=== PATIENT | female | born 1955 | race Caucasian/White ===

== ENCOUNTER 2018-03-08 15:41 | Emergency (ER) | payer OTHER ==
[2018-03-08 15:42] VITALS: BMI 34.4
[2018-03-08] MEDS ORDERED: Oxycodone/Acetaminophen 5/325 mg Tab PO STA (16:54)
--- NOTE | 2018-03-08 16:56 | C.PDOC ---
History Of Present Illness 62-year-old female presents to the ED for evaluation of right lower back, hip and knee pain which began after she sustained a fall at [employer] (on wet floor, as per triage) prior to arrival. Patient denies head injury, LOC, urinary/bowel incontinence, extremity numbness/weakness. Time Seen by Provider: 03/08/18 16:23 Chief Complaint (Nursing): Lower Extremity Problem/Injury History Per: Patient History/Exam Limitations: no limitations Onset/Duration Of Symptoms: Hrs Current Symptoms Are (Timing): Still Present Additional History Per: Patient - Hip Description Of Injury: Fell - Knee Description Of Injury: Fell Past Medical History Reviewed: Historical Data, Nursing Documentation, Vital Signs Vital Signs: Last Vital Signs Temp 98.8 F 03/08/18 18:46 Pulse 74 03/08/18 18:46 Resp 18 03/08/18 18:46 BP 114/73 03/08/18 18:46 Pulse Ox 98 03/09/18 21:12 - Medical History PMH: Asthma, Atrial Fibrillation, HTN Denies: Chronic Kidney Disease Surgical History: Appendectomy, Cholecystectomy Family History: States: Unknown Family Hx - Social History Hx Alcohol Use: No Hx Substance Use: No - Immunization History Hx Tetanus Toxoid Vaccination: (unk) Hx Influenza Vaccination: Yes Hx Pneumococcal Vaccination: (unk) Review Of Systems Musculoskeletal: Positive for: Back Pain (right, lower ), Other (right hip, right knee ) Neurological: Negative for: Weakness, Numbness Physical Exam - Physical Exam Appears: Non-toxic, No Acute Distress Skin: Normal Color, Warm, Dry, No Ecchymosis, No Other (abrasions ) Head: Atraumatic, Normacephalic Eye(s): bilateral: Normal Inspection Oral Mucosa: Moist Neck: Supple Chest: Symmetrical, No Deformity, No Tenderness Cardiovascular: Rhythm Regular, No Murmur Respiratory: Normal Breath Sounds, No Rales, No Rhonchi, No Wheezing Back: Other (mid-lower back tenderness ) Extremity: Normal ROM, Tenderness (right knee, lateral aspect of right hip ), Capillary Refill (less than 2 seconds), No Swelling Neurological/Psych: Oriented x3, Normal Speech, Normal Cognition Gait: Steady ED Course And Treatment O2 Sat by Pulse Oximetry: 98 (on RA) Pulse Ox Interpretation: Normal - Other Rad KNEE XRAY X-Ray: Viewed By Me, Read By Radiologist Interpretation: Accession No. : [id number]. Patient Name / ID : AMA [id number] / [id number]. Exam Date : 03/08/2018 17:06:33 ( Approved ). Study Comment : Sex / Age : F / 62Y. Creator : Katy Kidd. Dictator : Chadwick Romano MD. Senior Environmental Practice Leader : Supervisor [employer] : Chadwick Romano MD. Approver2 : Report Date : 03/08/2018 17:21:15. My Comment : . Right knee three views. History: Fall. Comparison: None available. Findings: Severe patellofemoral and moderate medial compartment joint space narrowing with subchondral sclerosis and osteophytosis. Small suprapatellar joint effusion. Diffuse osteopenia. Impression: Degenerative changes. If pain persists, consider MRI. HIP XRAY X-Ray: Viewed By Me, Read By Radiologist Interpretation: Accession No. : [id number]. Patient Name / ID : MAA [id number] / [id number]. Exam Date : 03/08/2018 17:06:42 ( Approved ). Study Comment : Sex / Age : F / 62Y. Creator : Katy Kidd. Dictator : Chadwick Romano MD. Senior Environmental Practice Leader : Super[employer] : Chadwick Romano MD. Approver2 : Report Date : 03/08/2018 17:21:15. My Comment : . Pelvis and right hip two views. History: Injury. Comparison: None available. Findings: Calcified phleboliths in the pelvis. Soft tissue calcifications adjacent to the left iliac bone and inferior to the left pubic bone. Moderate degenerative changes of the bilateral hip joints with joint space narrowing. Degenerative changes in the lower lumbar spine. No evidence for acute displaced fracture or dislocation. Impression: Degenerative changes. If pain persists, consider MRI. ls SPINE XRAY X-Ray: Viewed By Me, Read By Radiologist Interpretation: Accession No. : [id number]. Patient Name / ID : AMA [id number] / [id number]. Exam Date : 03/08/2018 17:06:54 ( Approved ). Study Comment : Sex / Age : F / 62Y. Creator : Katy Kidd. Dictator : Chadwick Romano MD. Senior Environmental Practice Leader : Super[employer] : Chadwick Romano MD. Approver2 : Report Date : 03/08/2018 17:21:15. My Comment : . Lumbar spine three views. History: Fall. Comparison: None available. Findings: Minimal retrolisthesis of L3 on L4. Loss of height of the inferior endplate of the L1 and superior endplate of the L2 vertebral bodies, indeterminate chronicity. Degenerative in the lower lumbar spine. Aortic calcifications. Rounded calcifications seen posterior to the sacrum. Surgical clips in the right upper abdomen. Impression: Minimal retrolisthesis of L3 on L4. Loss of height of the inferior endplate of the L1 and superior endplate of the L2 vertebral bodies , indeterminate chronicity. Degenerative in the lower lumbar spine. If pain persists, consider correlation with MRI. Progress Note: Hip XR and LS Spine XR, Right knee XR ordered and reviewed. XR shows degenerative joint disease in right knee and lower back. Percocet PO given for pain. On re-exam, patient is resting comfortably, showing no signs of distress and reports an improvement in her pain. Patient is given knee immobilizer and crutches. She is advised to follow up with orthopedic care within 1-2 days for further evaluation. Disposition - Disposition Referrals: Fabi Simmons MD [Staff Provider] - Disposition: HOME/ ROUTINE Disposition Time: 18:43 Condition: STABLE Additional Instructions: Follow up with PMD / Orthopedist within 1-2 days. Return to ED if feel worse. Prescriptions: traMADol [Ultram] 50 mg PO Q6 #20 tab Instructions: Contusion (DC) Forms: [employer] (Moroccan) - Clinical Impression Clinical Impression: Multiple contusions - PA / MARKET MAKER / Resident Statement MD/DO has reviewed & agrees with the documentation as recorded. - Scribe Statement The provider has reviewed the documentation as recorded by the Scribe (Park Mcintyre) All medical record entries made by the Scribe were at my direction and personally dictated by me. I have reviewed the chart and agree that the record accurately reflects my personal performance of the history, physical exam, medical decision making, and the department course for this patient. I have also personally directed, reviewed, and agree with the discharge instructions and disposition.
[2018-03-08] MEDS ORDERED: Oxycodone/Acetaminophen 5/325 mg Tab ONE (17:05)
[2018-03-08 18:46] VITALS: BP 114/73; PULSE 74; RESP 18; TEMP 98.8
[2018-03-08 18:52] VITALS: O2SAT 98
--- NOTE | 2018-03-09 12:35 | RAD ---
Right knee three views History: Fall. Comparison: None available. Findings: Severe patellofemoral and moderate medial compartment joint space narrowing with subchondral sclerosis and osteophytosis. Small suprapatellar joint effusion. Diffuse osteopenia. Impression: Degenerative changes. If pain persists, consider MRI.
--- NOTE | 2018-03-09 12:37 | RAD ---
Pelvis and right hip two views History: Injury. Comparison: None available. Findings: Calcified phleboliths in the pelvis. Soft tissue calcifications adjacent to the left iliac bone and inferior to the left pubic bone. Moderate degenerative changes of the bilateral hip joints with joint space narrowing. Degenerative changes in the lower lumbar spine. No evidence for acute displaced fracture or dislocation. Impression: Degenerative changes. If pain persists, consider MRI.
--- NOTE | 2018-03-09 12:43 | RAD ---
Lumbar spine three views History: Fall. Comparison: None available. Findings: Minimal retrolisthesis of L3 on L4. Loss of height of the inferior endplate of the L1 and superior endplate of the L2 vertebral bodies, indeterminate chronicity. Degenerative in the lower lumbar spine. Aortic calcifications. Rounded calcifications seen posterior to the sacrum. Surgical clips in the right upper abdomen. Impression: Minimal retrolisthesis of L3 on L4. Loss of height of the inferior endplate of the L1 and superior endplate of the L2 vertebral bodies, indeterminate chronicity. Degenerative in the lower lumbar spine. If pain persists, consider correlation with MRI.
== END 2018-03-08 19:18 | disposition home or self-care (01) ==
LOC: C.ER 15:41
DX: T14.8XXA Other injury of unspecified body region, initial encounter (principal); W18.30XA Fall on same level, unspecified, initial encounter; Y92.512 Supermarket, store or market as the place of occurrence of the external cause; I10 Essential (primary) hypertension; I48.91 Unspecified atrial fibrillation